=== PATIENT | female | born 1975 | race Caucasian/White ===

== ENCOUNTER 2017-04-27 18:10 | Emergency (ER) | payer BC ==
--- NOTE | 2017-04-27 18:47 | EDM.PDOC ---
ED HPI GENERAL MEDICAL PROBLEM - General Chief Complaint: Back Pain or Injury Stated Complaint: PT FELL AND HURT BACK Time Seen by Provider: 04/27/17 18:30 Source of Information: Reports: Patient History Limitations: Reports: No Limitations - History of Present Illness INITIAL COMMENTS - FREE TEXT/NARRATIVE: HISTORY AND PHYSICAL: History of present illness: [Patient comes to the emergency room complaining of upper back and tailbone discomfort as well as pain is to her right thumb. She slipped on some ice last night and fell landing flat on her back. She denies hitting her head and loss of consciousness. Her only complaints are to her upper back, tailbone and right thumb. She has not had any headache or head pain. No pain to her upper and lower extremities. No change to bowel or bladder habits. She sustained no other injury and has no other complaints or concerns at this time. She has not taken any medication for her symptoms.] Review of systems: As per history of present illness and below otherwise all systems reviewed and negative. Past medical history: As per history of present illness and as reviewed below otherwise noncontributory. Surgical history: As per history of present illness and as reviewed below otherwise noncontributory. Social history: No reported history of drug or alcohol abuse. Family history: As per history of present illness and as reviewed below otherwise noncontributory. Physical exam: HEENT: Atraumatic, normocephalic. PERRLA. EOMI. Oral mucous membranes are pink and moist. Lungs: Clear to auscultation, breath sounds equal bilaterally. Heart: S1S2, regular rate and rhythm. Abdomen: Soft, nondistended, nontender. Negative for costovertebral tenderness. Pelvis: Stable nontender. Genitourinary: Deferred. Rectal: Deferred. Back: Tender over thoracic musculature but no spinal tenderness. No tailbone tenderness with palpation over her SI joints or buttocks. Extremities: Right thumb over Metacarpals is mildly erythematous and mildly swollen. No ecchymosis. Decreased range of motion with movement of thumb. No hip pain with palpation. Neurovascular unremarkable. Neuro: Awake, alert, oriented. Cranial nerves II through XII unremarkable. Cerebellum unremarkable. Motor and sensory unremarkable throughout. Exam nonfocal. Diagnostics: [Right thumb x-ray, thoracic spine x-ray, sacrum] Therapeutics: [Tylenol 1000 mg by mouth] Impression: [Upper back pain Tailbone pain Right thumb pain] Plan: [Discussed with patient that her x-rays are within normal limits. Recommend alternating Tylenol with ibuprofen as needed for discomfort. Follow-up with PCP. She is in agreement with today's plan. All questions are answered and concerns are addressed.] Definitive disposition and diagnosis as appropriate pending reevaluation and review of above. lower back Pain Score (Numeric/FACES): 8 - Related Data Allergies Allergy/AdvReac Type Severity Reaction Status Date / Time sulfamethoxazole Allergy Swelling Verified 04/27/17 18:31 [From Bactrim] trimethoprim [From Bactrim] Allergy Swelling Verified 04/27/17 18:31 venlafaxine HCl Allergy Rash Verified 04/27/17 18:31 [From Effexor] Home Meds: Home Meds Escitalopram [Lexapro] 20 mg PO DAILY 04/27/17 [History] Lisinopril 40 mg PO DAILY 04/27/17 [History] ED ROS GENERAL - Review of Systems Review Of Systems: ROS reveals no pertinent complaints other than HPI. ED EXAM, UPPER BACK/NECK PAIN - Physical Exam Exam: See Below Course - Vital Signs Last Recorded V/S: Last Vital Signs Temp 97.4 F 04/27/17 21:16 Pulse 76 04/27/17 21:16 Resp 18 04/27/17 21:16 BP 159/77 H 04/27/17 21:16 Pulse Ox 100 04/27/17 21:16 - Orders/Labs/Meds Orders: Active Orders 24 hr Category Date Time Status Fingers Thumb Rt F5 [CR] Stat Exams 04/27/17 18:46 Taken Sacrum Coccyx Min 2V [CR] Stat Exams 04/27/17 18:46 Taken Thoracic Spine 2V [CR] Stat Exams 04/27/17 18:37 Taken Labs: Laboratory Tests 04/27/17 Range/Units 19:45 Urine HCG, Qual NEGATIVE (NEGATIVE) Meds: Medications Discontinued Medications Generic Name Dose Route Start Last Admin Trade Name Freq PRN Reason Stop Dose Admin Acetaminophen 1,000 mg 04/27/17 19:07 04/27/17 19:44 Tylenol Extra Strength PO 04/27/17 19:08 1,000 mg ONETIME ONE Administration Departure - Departure Time of Disposition: 19:50 Disposition: Home, Self-Care 01 Condition: Good Clinical Impression: Thumb pain, Upper back pain, Tail bone pain - Discharge Information Instructions: Back Pain, Adult, Tailbone Injury, [id number] Referrals: PCP,None [Primary Care Provider] - Forms: ED Department Discharge Additional Instructions: The following information is given to patients seen in the emergency department who are being discharged to home. This information is to outline your options for follow-up care. We provide all patients seen in our emergency department with a follow-up referral. The need for follow-up, as well as the timing and circumstances, are variable depending upon the specifics of your emergency department visit. If you don't have a primary care physician on staff, we will provide you with a referral. We always advise you to contact your personal physician following an emergency department visit to inform them of the circumstance of the visit and for follow-up with them and/or the need for any referrals to a consulting specialist. The emergency department will also refer you to a specialist when appropriate. This referral assures that you have the opportunity for follow-up care with a specialist. All of these measure are taken in an effort to provide you with optimal care, which includes your follow-up. Under all circumstances we always encourage you to contact your private physician who remains a resource for coordinating your care. When calling for follow-up care, please make the office aware that this follow-up is from your recent emergency room visit. If for any reason you are refused follow-up, please contact the [facility] emergency department at and asked to speak to the emergency department charge nurse. [facility] [address] [place] [id number] Follow-up the primary care provider in 2-3 days. Return to ER as needed as discussed. - My Orders Last 24 Hours: My Active Orders 04/27/17 18:37 Thoracic Spine 2V [CR] Stat 04/27/17 18:46 Fingers Thumb Rt F5 [CR] Stat Sacrum Coccyx Min 2V [CR] Stat - Assessment/Plan Last 24 Hours: My Active Orders 04/27/17 18:37 Thoracic Spine 2V [CR] Stat 04/27/17 18:46 Fingers Thumb Rt F5 [CR] Stat Sacrum Coccyx Min 2V [CR] Stat
[2017-04-27] MEDS ORDERED: Acetaminophen 500 MG Tab PO ONE (19:07)
[2017-04-27 21:17] VITALS: BP 159/77
--- NOTE | 2017-04-29 09:44 | CR ---
EXAM DATE: 04/27/17 PATIENT'S AGE: 41 Patient: EDGAR SIMS Facility: [place], [place] Site . Site : 1975 Study: XRay Spine Thoracic [id number]/4/2017 9:21:21 PM Ordering Physician: Doctor Valencia Final Report: INDICATION: Fell, upper and mid back pain. TECHNIQUE: Thoracic spine radiograph 3 view COMPARISON: None FINDINGS: Bones: Alignment is normal. No acute fractures or aggressive osseous lesions seen. Joints: Disc spaces are unremarkable. The facet joints are unremarkable in appearance. Soft tissues: Unremarkable. IMPRESSION: 1. No acute osseous injuries are identified. Dictated by Joaquín Zuniga MD @ 04/27/2017 9:42:27 PM Dictated by: Joaquín Zuniga MD @ 04/27/2017 21:42:31 (Electronic Signature) Report Signed by Proxy. MTDJorge Alberto
--- NOTE | 2017-04-29 09:45 | CR ---
EXAM DATE: 04/27/17 PATIENT'S AGE: 41 Patient: EDGAR SIMS Facility: [place], [place] Site . Site : 1975 Study: XRay Pelvis Sacrum/Coccyx [id number]/4/2017 9:22:32 PM Ordering Physician: Doctor Valencia Final Report: INDICATION: Status post fall, pain. TECHNIQUE: Sacrum radiograph 3 view COMPARISON: None FINDINGS: AP views of the sacrum limited due to overlying bowel gas. On the lateral view, no cortical irregularity identified to indicate sacral or coccygeal fracture. Pubic rami intact. IMPRESSION: 1. Limited study. No definite sacral fracture. If high clinical suspicion, consider MRI. Dictated by Joaquín Zuniga MD @ 04/27/2017 9:46:25 PM Dictated by: Joaquín uZniga MD @ 04/27/2017 21:46:33 (Electronic Signature) Report Signed by Proxy. MTDD
--- NOTE | 2017-04-29 09:46 | CR ---
EXAM DATE: 04/27/17 PATIENT'S AGE: 41 Patient: EDGAR SIMS Facility: [place], [place] Site . Site : 1975 Study: XRay Extremity Right Thumb [id number]/4/2017 9:23:27 PM Ordering Physician: Doctor Valencia Final Report: INDICATION: Status post fall with finger pain. TECHNIQUE: Finger radiographs 3 views COMPARISON: None FINDINGS: Bones: Alignment is normal. No acute fractures or aggressive bone lesions are identified. Joint spaces: The metacarpophalangeal and interphalangeal joints are normal in appearance. Soft tissues: Unremarkable. No radiopaque foreign bodies are noted. IMPRESSION: 1. Right thumb, no acute fracture or malalignment. Dictated by Joaquín Zuniga MD @ 04/27/2017 9:48:43 PM Dictated by: Joaquín Zuniga MD @ 04/27/2017 21:48:48 (Electronic Signature) Report Signed by Proxy. [facility] DIVISIONJorge Alberto
== END 2017-04-27 22:12 | disposition home or self-care (01) ==
LOC: MW.ED 18:10
DX: M54.6 Pain in thoracic spine (principal); M79.644 Pain in right finger(s); Z88.2 Allergy status to sulfonamides; Z88.1 Allergy status to other antibiotic agents; Z79.899 Other long term (current) drug therapy
CPT/HCPCS: 72070; 72220; 73140; 81025; 99284; A9270; 99283

== ENCOUNTER 2019-02-24 08:32 | Emergency (ER) | payer BC ==
[2019-02-24] MEDS ORDERED: Ketorolac 30 MG/ML SDV IVPUSH ONE (08:43)
[2019-02-24] MEDS ORDERED: Ondansetron 4 MG/2 ML SDV IVPUSH ONE (08:43)
[2019-02-24] MEDS ORDERED: Sodium Chloride 0.9% 1,000 ML IV ONE (08:43)
--- NOTE | 2019-02-24 08:56 | EDM.PDOC ---
ED HPI GENERAL MEDICAL PROBLEM - General Chief Complaint: Flank Pain Stated Complaint: POSSIBLE KIDNEY STONE Time Seen by Provider: 02/24/19 08:42 - History of Present Illness INITIAL COMMENTS - FREE TEXT/NARRATIVE: HISTORY AND PHYSICAL: History of present illness: Patient a 43-year-old white female history of nephrolithiasis who presents with concern of right flank pain she is awaiting a urology follow-up for a 9 mm stone in her right renal pelvis without obstruction diagnosed on 01/19/19 fever chills nausea vomiting or other complaints. Review of systems: As per history of present illness and below otherwise all systems reviewed and negative. Past medical history: As per history of present illness and as reviewed below otherwise noncontributory. Surgical history: As per history of present illness and as reviewed below otherwise noncontributory. Social history: No reported history of drug or alcohol abuse. Family history: As per history of present illness and as reviewed below otherwise noncontributory. Physical exam: HEENT: Atraumatic, normocephalic, pupils reactive, negative for conjunctival pallor or scleral icterus, mucous membranes moist, throat clear, neck supple, nontender, trachea midline. Lungs: Clear to auscultation, breath sounds equal bilaterally, chest nontender. Heart: S1S2, regular, negative for clicks, rubs, or JVD. Abdomen: Soft, nondistended, nontender. Negative for masses or hepatosplenomegaly. Right-sided costovertebral tenderness. Pelvis: Stable nontender. Genitourinary: Deferred. Rectal: Deferred. Extremities: Atraumatic, negative for cords or calf pain. Neurovascular unremarkable. Neuro: Awake, alert, oriented. Cranial nerves II through XII unremarkable. Cerebellum unremarkable. Motor and sensory unremarkable throughout. Exam nonfocal. Diagnostics: CBC CMP UA CT abdomen and pelvis hCG Therapeutics: Saline 1 L bolus Toradol 30 mg IV Impression: #1 history of nephrolithiasis #2 right flank pain Definitive disposition and diagnosis as appropriate pending reevaluation and review of above. right flank Pain Score (Numeric/FACES): 10 - Related Data Allergies Allergy/AdvReac Type Severity Reaction Status Date / Time sulfamethoxazole Allergy Swelling Verified 02/24/19 08:47 [From Bactrim] trimethoprim [From Bactrim] Allergy Swelling Verified 02/24/19 08:47 venlafaxine HCl Allergy Rash Verified 02/24/19 08:47 [From Effexor] Home Meds: Home Meds Escitalopram [Lexapro] 20 mg PO DAILY 04/27/17 [History] Lisinopril 40 mg PO DAILY 04/27/17 [History] Past Medical History HEENT History: Reports: None Cardiovascular History: Reports: None Respiratory History: Reports: None Gastrointestinal History: Reports: None Genitourinary History: Reports: None GENERAL [place] History: Reports: None Musculoskeletal History: Reports: None Neurological History: Reports: None Psychiatric History: Reports: Depression Endocrine/Metabolic History: Reports: None Hematologic History: Reports: None Immunologic History: Reports: None Oncologic (Cancer) History: Reports: None Dermatologic History: Reports: None - Infectious Disease History Infectious Disease History: Reports: None - Past Surgical History Head Surgeries/Procedures: Reports: None Female Surgical History: Reports: Kidney stone extraction, Oophorectomy Social & Family History - Family History Family Medical History: Noncontributory - Tobacco Use Smoking Status *Q: Never Smoker Second Hand Smoke Exposure: No - Caffeine Use Caffeine Use: Reports: Soda - Recreational Drug Use Recreational Drug Use: No ED ROS GENERAL - Review of Systems Review Of Systems: ROS reveals no pertinent complaints other than HPI. ED EXAM, GENERAL - Physical Exam Exam: See Below (dictation) Course - Vital Signs Text/Narrative:: Case was discussed with Dr. Blanton urology was scheduled to follow-up with patient we discussed the urinalysis results the CAT scan findings labs and clinical statement patient will be discharged home per urology who will notify patient to expedite definitive treatment plan urology requests antibiotics pain medication. Patient understands and agrees Last Recorded V/S: Last Vital Signs Temp 36.1 C 02/24/19 08:43 Pulse 74 02/24/19 10:08 Resp 18 02/24/19 10:08 BP 136/79 02/24/19 10:08 Pulse Ox 100 02/24/19 10:08 - Orders/Labs/Meds Orders: Active Orders 24 hr Category Date Time Status CULTURE URINE [RM] Stat Lab 02/24/19 09:59 Received Labs: Laboratory Tests 02/24/19 02/24/19 02/24/19 Range/Units 08:50 08:50 08:50 WBC 7.76 (4.0-11.0) K/uL RBC 4.53 (4.30-5.90) M/uL Hgb 13.9 (12.0-16.0) g/dL Hct 43.0 (36.0-46.0) % MCV 94.9 (80.0-98.0) fL MCH 30.7 (27.0-32.0) pg MCHC 32.3 (31.0-37.0) g/dL RDW Std Deviation 45.9 (28.0-62.0) fl RDW Coeff of [place] 13 (11.0-15.0) % Plt Count 246 (150-400) K/uL MPV 10.00 (7.40-12.00) fL Neut % (Auto) 61.3 (48.0-80.0) % Lymph % (Auto) 25.0 (16.0-40.0) % [place] % (Auto) 9.3 (0.0-15.0) % Eos % (Auto) 4.0 (0.0-7.0) % Baso % (Auto) 0.4 (0.0-1.5) % Neut # (Auto) 4.8 (1.4-5.7) K/uL Lymph # (Auto) 1.9 (0.6-2.4) K/uL [place] # (Auto) 0.7 (0.0-0.8) K/uL Eos # (Auto) 0.3 (0.0-0.7) K/uL Baso # (Auto) 0.0 (0.0-0.1) K/uL Nucleated RBC % 0.0 /100WBC Nucleated RBCs # 0 K/uL Sodium 138 (136-145) mmol/L Potassium 4.2 (3.5-5.1) mmol/L Chloride 104 (98-107) mmol/L Carbon Dioxide 23.6 (21.0-32.0) mmol/L BUN 16 (7.0-18.0) mg/dL Creatinine 0.9 (0.6-1.0) mg/dL Est Cr Clr Drug Dosing 77.01 mL/min Estimated GFR (MDRD) > 60.0 ml/min Glucose 100 (74-106) mg/dL Calcium 9.3 (8.5-10.1) mg/dL Total Bilirubin 0.2 (0.2-1.0) mg/dL AST 30 (15-37) IU/L ALT 47 (14-63) IU/L Alkaline Phosphatase 79 (46-116) U/L Total Protein 7.3 (6.4-8.2) g/dL Albumin 3.8 (3.4-5.0) g/dL Globulin 3.5 (2.6-4.0) g/dL Albumin/Globulin Ratio 1.1 (0.9-1.6) HCG, Qual NEGATIVE (NEG) Urine Color Urine Appearance Urine pH (5.0-8.0) Ur Specific [place] (1.001-1.035) Urine Protein (NEGATIVE) mg/dL Urine Glucose (UA) (NEGATIVE) mg/dL Urine Ketones (NEGATIVE) mg/dL Urine Occult Blood (NEGATIVE) Urine Nitrite (NEGATIVE) Urine Bilirubin (NEGATIVE) Urine Urobilinogen (<2.0) EU/dL Ur Leukocyte Esterase (NEGATIVE) Urine RBC (0-2/HPF) Urine WBC (0-5/HPF) Ur Epithelial Cells (NONE-FEW) Urine Bacteria (NEGATIVE) 02/24/19 Range/Units 09:59 WBC (4.0-11.0) K/uL RBC (4.30-5.90) M/uL Hgb (12.0-16.0) g/dL Hct (36.0-46.0) % MCV (80.0-98.0) fL MCH (27.0-32.0) pg MCHC (31.0-37.0) g/dL RDW Std Deviation (28.0-62.0) fl RDW Coeff of [place] (11.0-15.0) % Plt Count (150-400) K/uL MPV (7.40-12.00) fL Neut % (Auto) (48.0-80.0) % Lymph % (Auto) (16.0-40.0) % [place] % (Auto) (0.0-15.0) % Eos % (Auto) (0.0-7.0) % Baso % (Auto) (0.0-1.5) % Neut # (Auto) (1.4-5.7) K/uL Lymph # (Auto) (0.6-2.4) K/uL [place] # (Auto) (0.0-0.8) K/uL Eos # (Auto) (0.0-0.7) K/uL Baso # (Auto) (0.0-0.1) K/uL Nucleated RBC % /100WBC Nucleated RBCs # K/uL Sodium (136-145) mmol/L Potassium (3.5-5.1) mmol/L Chloride (98-107) mmol/L Carbon Dioxide (21.0-32.0) mmol/L BUN (7.0-18.0) mg/dL Creatinine (0.6-1.0) mg/dL Est Cr Clr Drug Dosing mL/min Estimated GFR (MDRD) ml/min Glucose (74-106) mg/dL Calcium (8.5-10.1) mg/dL Total Bilirubin (0.2-1.0) mg/dL AST (15-37) IU/L ALT (14-63) IU/L Alkaline Phosphatase (46-116) U/L Total Protein (6.4-8.2) g/dL Albumin (3.4-5.0) g/dL Globulin (2.6-4.0) g/dL Albumin/Globulin Ratio (0.9-1.6) HCG, Qual (NEG) Urine Color YELLOW Urine Appearance SLT CLOUDY Urine pH 6.0 (5.0-8.0) Ur Specific [place] 1.025 (1.001-1.035) Urine Protein 30 H (NEGATIVE) mg/dL Urine Glucose (UA) NEGATIVE (NEGATIVE) mg/dL Urine Ketones NEGATIVE (NEGATIVE) mg/dL Urine Occult Blood LARGE H (NEGATIVE) Urine Nitrite NEGATIVE (NEGATIVE) Urine Bilirubin NEGATIVE (NEGATIVE) Urine Urobilinogen 0.2 (<2.0) EU/dL Ur Leukocyte Esterase SMALL H (NEGATIVE) Urine RBC 5-10 (0-2/HPF) Urine WBC 10-15 (0-5/HPF) Ur Epithelial Cells FEW (NONE-FEW) Urine Bacteria FEW (NEGATIVE) Meds: Medications Discontinued Medications Generic Name Dose Route Start Last Admin Trade Name Freq PRN Reason Stop Dose Admin Sodium Chloride 1,000 mls @ 999 mls/hr 02/24/19 08:43 02/24/19 09:03 Normal Saline IV 02/24/19 09:43 999 mls/hr STAT ONE Administration Ketorolac Tromethamine 30 mg 09/03/19 08:43 02/24/19 09:03 Toradol IVPUSH 02/24/19 08:44 30 mg ONETIME ONE Administration Ondansetron HCl 4 mg 02/24/19 08:43 02/24/19 09:03 Zofran IVPUSH 02/24/19 08:44 4 mg ONETIME ONE Administration Departure - Departure Time of Disposition: 10:52 Disposition: Home, Self-Care 01 Condition: Good Clinical Impression: Ureteric colic, Ureterolithiasis - Discharge Information Referrals: Maggie Joseph MD [Primary Care Provider] - Forms: ED Department Discharge Additional Instructions: The following information is given to patients seen in the emergency department who are being discharged to home. This information is to outline your options for follow-up care. We provide all patients seen in our emergency department with a follow-up referral. The need for follow-up, as well as the timing and circumstances, are variable depending upon the specifics of your emergency department visit. If you don't have a primary care physician on staff, we will provide you with a referral. We always advise you to contact your personal physician following an emergency department visit to inform them of the circumstance of the visit and for follow-up with them and/or the need for any referrals to a consulting specialist. The emergency department will also refer you to a specialist when appropriate. This referral assures that you have the opportunity for followup care with a specialist. All of these measure are taken in an effort to provide you with optimal care, which includes your followup. Under all circumstances we always encourage you to contact your private physician who remains a resource for coordinating your care. When calling for followup care, please make the office aware that this follow-up is from your recent emergency room visit. If for any reason you are refused follow-up, please contact the [facility] emergency department at and asked to speak to the emergency department charge nurse. Follow-up urology as discussed Cipro Zofran Flomax hydrocodone as prescribed return as needed as discussed - My Orders Last 24 Hours: My Active Orders 02/24/19 09:59 CULTURE URINE [RM] Stat - Assessment/Plan Last 24 Hours: My Active Orders 02/24/19 09:59 CULTURE URINE [RM] Stat
[2019-02-24 09:28] LABS: BLOOD UREA NITROGEN,BUN 16 mg/dL (7.0-18.0); CARBON DIOXIDE,CO2 23.6 mmol/L (21.0-32.0); CHLORIDE,CL 104 mmol/L (98-107); GLUCOSE RANDOM 100 mg/dL (74-106); POTASSIUM,K 4.2 mmol/L (3.5-5.1); SODIUM,NA 138 mmol/L (136-145)
--- NOTE | 2019-02-24 09:58 | CT ---
INDICATION: Right flank pain; history of kidney stones. COMPARISON: CT abdomen and pelvis without intravenous or oral contrast January 19, 2019. TECHNIQUE: CT abdomen and pelvis without intravenous or oral contrast; coronal and sagittal reformats. FINDINGS: No abnormal intra pulmonary nodular densities to the lung bases. No evidence of pleural effusion. Normal size cardiac silhouette without any evidence of pericardial effusion. Diffuse fatty infiltration of the liver. No focal hepatic or splenic pathology. No pancreatic pathology. Cholelithiasis. A 11.6 mm stone identified at the right ureteropelvic junction slice 62 series 201 causing mild right-sided hydronephrosis. No evidence of dilatation of the right ureter. No evidence of stones in the right ureter. 7 mm nonobstructing calculus upper pole calyx left kidney slice 48 series 201. No perinephric pathology on either side. No retroperitoneal lymphadenopathy. No evidence of abdominal or pelvic ascites. Normal appendix. CT study of the pelvis is unremarkable. Status post hysterectomy. Impression: 1. A 7 mm nonobstructing calculus upper pole calyx left kidney. 2. A 11.6 mm calculus right ureteropelvic junction causing mild right-sided hydronephrosis. 3. Normal appendix. 4. Status post hysterectomy. 5. Cholelithiasis. Please note that all CT scans at this facility use dose modulation, iterative reconstruction, and/or weight-based dosing when appropriate to reduce radiation dose to as low as reasonably achievable. Dictated by Irlanda Veloz MD @ Feb 24 2019 9:48AM Signed by Dr. Irlanda Veloz @ Feb 24 2019 9:56AM
[2019-02-24 12:38] VITALS: BP 168/95
== END 2019-02-24 11:13 | disposition home or self-care (01) ==
LOC: MW.ED 08:32
DX: N13.2 Hydronephrosis with renal and ureteral calculous obstruction (principal); Z88.8 Allergy status to other drugs, medicaments and biological substances; Z88.1 Allergy status to other antibiotic agents; Z79.899 Other long term (current) drug therapy
CPT/HCPCS: 36415; 74176; 80053; 81001; 84703; 85025; 87086; 96361; 96374; 96375; 99284; J1885; J2405; J7040

== ENCOUNTER 2019-03-04 22:51 | Emergency (ER) | payer BC ==
[2019-03-04] MEDS ORDERED: Morphine 2 MG/ML Syringe IVPUSH ONE (23:16)
[2019-03-04] MEDS ORDERED: Ondansetron 4 MG/2 ML SDV IVPUSH ONE (23:16)
[2019-03-04] MEDS ORDERED: Sodium Chloride 0.9% 10 ML Syringe FLUSH PRN (23:16)
[2019-03-04] MEDS ORDERED: Sodium Chloride 0.9% 1,000 ML IV ONE (23:16)
[2019-03-04] MEDS ORDERED: Sodium Chloride 0.9% 2.5 ML Syringe FLUSH PRN (23:16)
[2019-03-04] MEDS ORDERED: Ketorolac 30 MG/ML SDV IVPUSH ONE (23:16)
--- NOTE | 2019-03-04 23:21 | EDM.PDOC ---
ED HPI GENERAL MEDICAL PROBLEM - General Chief Complaint: Flank Pain Stated Complaint: KIDNEY STONE AND BACK PAIN Time Seen by Provider: 03/04/19 23:05 - History of Present Illness INITIAL COMMENTS - FREE TEXT/NARRATIVE: HISTORY AND PHYSICAL: History of present illness: The patient is a 43-year-old female with a known history of hypertension who has had multiple episodes of kidney stones and 3 prior lithotripsies presents with a known diagnosis of a large right intrarenal stone which is approximately 11 mm inside at the UPJ and has already seen Dr. Sears. She says that she had a follow-up x-ray yesterday and is scheduled for lithotripsy on March 12, next week. She says that she has hydrocodone 5/325 that she uses occasionally for pain management but she has not used very much of the medication. She says she has taken one tablet every 2-3 days and she did take 1 prior to coming here. She said she has never taken more than 1 tablet of time and usually it takes care of the pain but this evening it did not work and she was concerned because the pain was making her blood pressure go up. She is not having fevers chills nausea or vomiting but with the new increase in pain she had some nausea without vomiting at home and felt hot and sweaty. She has no shortness of breath or chest pain and the pain she is describing as on the right flank radiating to the right mid abdomen just her typical pain. She has no left-sided abdominal pain has been having normal bowel movements. She has no frequency urgency or dysuria and she admits that she does not drink much water. She has a known history of gallstones and in fact has appointment tomorrow with Dr. Garcia at [facility] to discuss cholecystectomy after the kidney stone is taking care of. The patient had a CT scan of the abdomen and pelvis performed here in the emergency department on February 24 which I reviewed and a KUB x-ray performed yesterday which I have also reviewed. Review of systems: As per history of present illness and below otherwise all systems reviewed and negative. Past medical history: As per history of present illness and as reviewed below otherwise noncontributory. Surgical history: As per history of present illness and as reviewed below otherwise noncontributory. Social history: No reported history of drug or alcohol abuse. Family history: As per history of present illness and as reviewed below otherwise noncontributory. Physical exam: General: Well-developed well-nourished mildly overweight female who is nontoxic and vital signs are noted by me HEENT: Atraumatic, normocephalic, negative for conjunctival pallor or scleral icterus, mucous membranes moist, throat clear, neck supple, nontender, trachea midline. Lungs: Clear to auscultation, breath sounds equal bilaterally, chest nontender. Heart: S1S2, regular rate and rhythm no overt murmurs Abdomen: Soft, nondistended, nontender. Bowel sounds are hypoactive and on palpation I cannot reproduce the pain and she only has minimal tenderness in the right side. Negative for masses or hepatosplenomegaly. Negative for costovertebral tenderness. Pelvis: Stable nontender. Genitourinary: Deferred. Rectal: Deferred. Extremities: Atraumatic, negative for cords or calf pain. Neurovascular unremarkable. Neuro: Awake, alert, oriented. Cranial nerves II through XII unremarkable. Cerebellum unremarkable. Motor and sensory unremarkable throughout. Exam nonfocal. Diagnostics: UA with reflex UCG CBC CMP Urine culture was ordered after the UA was reflexed Therapeutics: IV fluids Toradol Zofran and morphine, Dilaudid Discussed with the patient that the Sarita she has at home can be increased in dosing and she may take one and a half to 2 tablets every 6-8 hours as she chooses if the pain is not managed with the one tablet per dose that she has been taking. We also discussed that she needs to increase her fluid intake as she is not hydrated enough in light of her kidney stone and upcoming surgery Impression: Right flank pain acute on chronic with history of right UPJ stone Definitive disposition and diagnosis as appropriate pending reevaluation and review of above. right flank Pain Score (Numeric/FACES): 10 - Related Data Allergies Allergy/AdvReac Type Severity Reaction Status Date / Time sulfamethoxazole Allergy Swelling Verified 03/04/19 22:59 [From Bactrim] trimethoprim [From Bactrim] Allergy Swelling Verified 03/04/19 22:59 venlafaxine HCl Allergy Rash Verified 03/04/19 22:59 [From Effexor] Home Meds: Home Meds Lisinopril 40 mg PO DAILY 04/27/17 [History] Hydrocodone/Acetaminophen [Hydrocodon-Acetaminophen 5-325] 1 tab PO ASDIRECTED 03/04/19 [History] Past Medical History HEENT History: Reports: None Cardiovascular History: Reports: Hypertension Respiratory History: Reports: None Gastrointestinal History: Reports: None Genitourinary History: Reports: None PROFESSOR OF OCEANOGRAPHY History: Reports: None Musculoskeletal History: Reports: None Neurological History: Reports: None Psychiatric History: Reports: Depression Endocrine/Metabolic History: Reports: None Insulin Pump Model and Manager Air: N/A Hematologic History: Reports: None Immunologic History: Reports: None Oncologic (Cancer) History: Reports: None Dermatologic History: Reports: None - Infectious Disease History Infectious Disease History: Reports: None - Past Surgical History Head Surgeries/Procedures: Reports: None Female Surgical History: Reports: Kidney stone extraction, Lithotripsy/ESWL, Oophorectomy Social & Family History - Family History Family Medical History: Noncontributory - Tobacco Use Smoking Status *Q: Never Smoker - Caffeine Use Caffeine Use: Reports: Soda - Recreational Drug Use Recreational Drug Use: No ED ROS GENERAL - Review of Systems Review Of Systems: ROS reveals no pertinent complaints other than HPI. ED EXAM, GENERAL - Physical Exam Exam: See Below (See dictation) Course - Vital Signs Last Recorded V/S: Last Vital Signs Temp 36.1 C 03/04/19 23:00 Pulse 74 03/04/19 23:38 Resp 16 03/04/19 23:38 BP 149/87 H 03/04/19 23:38 Pulse Ox 100 03/04/19 23:38 - Orders/Labs/Meds Orders: Active Orders 24 hr Category Date Time Status CULTURE URINE [RM] Stat Lab 03/04/19 23:05 Received Sodium Chloride 0.9% [Saline Flush] Med 03/04/19 23:16 Active 10 ml FLUSH ASDIRECTED PRN Sodium Chloride 0.9% [Saline Flush] Med 03/04/19 23:16 Active 2.5 ml FLUSH ASDIRECTED PRN Saline Lock Insert [OM.PC] Stat Oth 03/04/19 23:15 Ordered Medication Orders Sodium Chloride (Saline Flush) 10 ml FLUSH ASDIRECTED PRN PRN Reason: Keep Vein Open Sodium Chloride (Saline Flush) 2.5 ml FLUSH ASDIRECTED PRN PRN Reason: Keep Vein Open Labs: Laboratory Tests 03/04/19 03/04/19 03/04/19 Range/Units 23:05 23:05 23:26 WBC 7.71 (4.0-11.0) K/uL RBC 4.39 (4.30-5.90) M/uL Hgb 13.6 (12.0-16.0) g/dL Hct 42.2 (36.0-46.0) % MCV 96.1 (80.0-98.0) fL MCH 31.0 (27.0-32.0) pg MCHC 32.2 (31.0-37.0) g/dL RDW Std Deviation 46.0 (28.0-62.0) fl RDW Coeff of Kalyan 13 (11.0-15.0) % Plt Count 237 (150-400) K/uL MPV 9.90 (7.40-12.00) fL Neut % (Auto) 61.7 (48.0-80.0) % Lymph % (Auto) 25.7 (16.0-40.0) % [place] % (Auto) 8.8 (0.0-15.0) % Eos % (Auto) 3.4 (0.0-7.0) % Baso % (Auto) 0.4 (0.0-1.5) % Neut # (Auto) 4.8 (1.4-5.7) K/uL Lymph # (Auto) 2.0 (0.6-2.4) K/uL [place] # (Auto) 0.7 (0.0-0.8) K/uL Eos # (Auto) 0.3 (0.0-0.7) K/uL Baso # (Auto) 0.0 (0.0-0.1) K/uL Nucleated RBC % 0.0 /100WBC Nucleated RBCs # 0 K/uL Sodium (136-145) mmol/L Potassium (3.5-5.1) mmol/L Chloride (98-107) mmol/L Carbon Dioxide (21.0-32.0) mmol/L BUN (7.0-18.0) mg/dL Creatinine (0.6-1.0) mg/dL Est Cr Clr Drug Dosing mL/min Estimated GFR (MDRD) ml/min Glucose (74-106) mg/dL Calcium (8.5-10.1) mg/dL Total Bilirubin (0.2-1.0) mg/dL AST (15-37) IU/L ALT (14-63) IU/L Alkaline Phosphatase (46-116) U/L Total Protein (6.4-8.2) g/dL Albumin (3.4-5.0) g/dL Globulin (2.6-4.0) g/dL Albumin/Globulin Ratio (0.9-1.6) Urine Color YELLOW Urine Appearance SLT CLOUDY Urine pH 5.5 (5.0-8.0) Ur Specific [place] >= 1.030 (1.001-1.035) Urine Protein 30 H (NEGATIVE) mg/dL Urine Glucose (UA) NEGATIVE (NEGATIVE) mg/dL Urine Ketones NEGATIVE (NEGATIVE) mg/dL Urine Occult Blood LARGE H (NEGATIVE) Urine Nitrite NEGATIVE (NEGATIVE) Urine Bilirubin NEGATIVE (NEGATIVE) Urine Urobilinogen 0.2 (<2.0) EU/dL Ur Leukocyte Esterase SMALL H (NEGATIVE) Urine RBC TOO NUMEROUS TO CT H (0-2/HPF) Urine WBC 3-5 (0-5/HPF) Ur Epithelial Cells FEW (NONE-FEW) Urine Bacteria FEW (NEGATIVE) Urine Mucus LIGHT (NONE-MOD) Urine HCG, Qual NEGATIVE (NEGATIVE) 03/04/19 Range/Units 23:26 WBC (4.0-11.0) K/uL RBC (4.30-5.90) M/uL Hgb (12.0-16.0) g/dL Hct (36.0-46.0) % MCV (80.0-98.0) fL MCH (27.0-32.0) pg MCHC (31.0-37.0) g/dL RDW Std Deviation (28.0-62.0) fl RDW Coeff of Kalyan (11.0-15.0) % Plt Count (150-400) K/uL MPV (7.40-12.00) fL Neut % (Auto) (48.0-80.0) % Lymph % (Auto) (16.0-40.0) % [place] % (Auto) (0.0-15.0) % Eos % (Auto) (0.0-7.0) % Baso % (Auto) (0.0-1.5) % Neut # (Auto) (1.4-5.7) K/uL Lymph # (Auto) (0.6-2.4) K/uL [place] # (Auto) (0.0-0.8) K/uL Eos # (Auto) (0.0-0.7) K/uL Baso # (Auto) (0.0-0.1) K/uL Nucleated RBC % /100WBC Nucleated RBCs # K/uL Sodium 143 (136-145) mmol/L Potassium 3.9 (3.5-5.1) mmol/L Chloride 106 (98-107) mmol/L Carbon Dioxide 27.3 (21.0-32.0) mmol/L BUN 16 (7.0-18.0) mg/dL Creatinine 1.0 (0.6-1.0) mg/dL Est Cr Clr Drug Dosing 69.31 mL/min Estimated GFR (MDRD) > 60.0 ml/min Glucose 104 (74-106) mg/dL Calcium 8.6 (8.5-10.1) mg/dL Total Bilirubin 0.3 (0.2-1.0) mg/dL AST 28 (15-37) IU/L ALT 57 (14-63) IU/L Alkaline Phosphatase 76 (46-116) U/L Total Protein 6.9 (6.4-8.2) g/dL Albumin 3.6 (3.4-5.0) g/dL Globulin 3.3 (2.6-4.0) g/dL Albumin/Globulin Ratio 1.1 (0.9-1.6) Urine Color Urine Appearance Urine pH (5.0-8.0) Ur Specific [place] (1.001-1.035) Urine Protein (NEGATIVE) mg/dL Urine Glucose (UA) (NEGATIVE) mg/dL Urine Ketones (NEGATIVE) mg/dL Urine Occult Blood (NEGATIVE) Urine Nitrite (NEGATIVE) Urine Bilirubin (NEGATIVE) Urine Urobilinogen (<2.0) EU/dL Ur Leukocyte Esterase (NEGATIVE) Urine RBC (0-2/HPF) Urine WBC (0-5/HPF) Ur Epithelial Cells (NONE-FEW) Urine Bacteria (NEGATIVE) Urine Mucus (NONE-MOD) Urine HCG, Qual (NEGATIVE) Meds: Medications Generic Name Dose Route Start Last Admin Trade Name Freq PRN Reason Stop Dose Admin Sodium Chloride 10 ml 03/04/19 23:16 Saline Flush FLUSH ASDIRECTED PRN Keep Vein Open Sodium Chloride 2.5 ml 03/04/19 23:16 Saline Flush FLUSH ASDIRECTED PRN Keep Vein Open Discontinued Medications Generic Name Dose Route Start Last Admin Trade Name Trinh PRN Reason Stop Dose Admin Hydromorphone HCl 1 mg 03/05/19 00:09 03/05/19 00:21 Dilaudid IVPUSH 03/05/19 00:10 1 mg ONETIME ONE Administration Sodium Chloride 1,000 mls @ 999 mls/hr 03/04/19 23:16 03/04/19 23:22 Normal Saline IV 03/05/19 00:16 999 mls/hr STAT ONE Administration Ketorolac Tromethamine 30 mg 03/04/19 23:16 03/04/19 23:23 Toradol IVPUSH 03/04/19 23:17 30 mg ONETIME ONE Administration Morphine Sulfate 4 mg 03/04/19 23:16 03/04/19 23:23 Morphine IVPUSH 03/04/19 23:17 4 mg ONETIME ONE Administration Ondansetron HCl 4 mg 03/04/19 23:16 03/04/19 23:23 Zofran IVPUSH 03/04/19 23:17 4 mg ONETIME ONE Administration Departure - Departure Time of Disposition: 00:38 Disposition: Home, Self-Care 01 Condition: Good Clinical Impression: Right flank pain, Kidney stone - Discharge Information Instructions: Kidney Stones, [id number], Flank Pain, Adult, [id number] Referrals: PCP,None [Primary Care Provider] - Forms: ED Department Discharge Additional Instructions: The following information is given to patients seen in the emergency department who are being discharged to home. This information is to outline your options for follow-up care. We provide all patients seen in our emergency department with a follow-up referral. The need for follow-up, as well as the timing and circumstances, are variable depending upon the specifics of your emergency department visit. If you don't have a primary care physician on staff, we will provide you with a referral. We always advise you to contact your personal physician following an emergency department visit to inform them of the circumstance of the visit and for follow-up with them and/or the need for any referrals to a consulting specialist. The emergency department will also refer you to a specialist when appropriate. This referral assures that you have the opportunity for followup care with a specialist. All of these measure are taken in an effort to provide you with optimal care, which includes your followup. Under all circumstances we always encourage you to contact your private physician who remains a resource for coordinating your care. When calling for followup care, please make the office aware that this follow-up is from your recent emergency room visit. If for any reason you are refused follow-up, please contact the emergency department at and ask to speak to the emergency department charge nurse. [facility] [address] [place] [address] [id number] Continue to use the Sarita that you have taking 1, 1 1/2 or 2 tablets every 6-8 hours for pain management. Please connect with Dr. Sears if you are having continued pain issues as he can advise you more thoroughly in light of your upcoming lithotripsy. Please push more hydration and avoid caffeinated products. Return to ER as needed and as discussed - My Orders Last 24 Hours: My Active Orders 03/04/19 23:15 Saline Lock Insert [OM.PC] Stat 03/04/19 23:16 Sodium Chloride 0.9% [Saline Flush] 10 ml FLUSH ASDIRECTED PRN Sodium Chloride 0.9% [Saline Flush] 2.5 ml FLUSH ASDIRECTED PRN - Assessment/Plan Last 24 Hours: My Active Orders 03/04/19 23:15 Saline Lock Insert [OM.PC] Stat 03/04/19 23:16 Sodium Chloride 0.9% [Saline Flush] 10 ml FLUSH ASDIRECTED PRN Sodium Chloride 0.9% [Saline Flush] 2.5 ml FLUSH ASDIRECTED PRN
[2019-03-05 00:02] LABS: BLOOD UREA NITROGEN,BUN 16 mg/dL (7.0-18.0); CARBON DIOXIDE,CO2 27.3 mmol/L (21.0-32.0); CHLORIDE,CL 106 mmol/L (98-107); GLUCOSE RANDOM 104 mg/dL (74-106); POTASSIUM,K 3.9 mmol/L (3.5-5.1); SODIUM,NA 143 mmol/L (136-145)
[2019-03-05] MEDS ORDERED: HYDROmorphone 1 MG/ML Syringe IVPUSH ONE (00:09)
[2019-03-05 00:38] VITALS: BP 123/79; PULSE 77
== END 2019-03-05 00:47 | disposition home or self-care (01) ==
LOC: MW.ED 22:51
DX: N20.0 Calculus of kidney (principal); I10 Essential (primary) hypertension; Z88.2 Allergy status to sulfonamides; Z88.1 Allergy status to other antibiotic agents; Z88.8 Allergy status to other drugs, medicaments and biological substances; Z79.899 Other long term (current) drug therapy
CPT/HCPCS: 36415; 80053; 81001; 81025; 85025; 87086; 96361; 96374; 96375; 99284; J1170; J1885; J2270; J2405; J7040; 99283

== ENCOUNTER 2019-03-12 08:03 | Day surgery (SDC) | payer BC ==
[~2019-03-12 08:03] MED LIST: Iopamidol 408 MG/ML 50 ML SDV ONE; Lactated Ringers 1,000 ML IV SCH; Sodium Chloride 0.9% 10 ML SDV IV PRN; Sodium Chloride 0.9% 10 ML Syringe FLUSH PRN; Sodium Chloride 0.9% 2.5 ML Syringe FLUSH PRN
--- NOTE | 2019-03-12 08:57 | PCM.PREANE ---
Preanesthetic Assessment - Anesthesia/Transfusion/Family Hx Anesthesia History: Prior Anesthesia Without Reaction Family History of Anesthesia Reaction: No Transfusion History: No Prior Transfusion(s) - Review of Systems General: No Symptoms Pulmonary: No Symptoms Cardiovascular: No Symptoms Gastrointestinal: No Symptoms Neurological: No Symptoms Other: Reports: None - Physical Assessment Height: 5 ft 6 in Weight: 96.615 kg ASA Class: 2 Mental Status: Alert & Oriented x3 Airway Class: Mallampati = 2 Dentition: Reports: Normal Dentition ROM/Head Extension: Full Lungs: Clear to Auscultation, Normal Respiratory Effort Cardiovascular: Regular Rate, Regular Rhythm - Lab Values: Laboratory Last Values Urine HCG, Qual NEGATIVE (NEGATIVE) 03/12/19 08:20 - Allergies Allergies/Adverse Reactions: Allergies Allergy/AdvReac Type Severity Reaction Status Date / Time sulfamethoxazole Allergy Swelling Verified 03/09/19 10:09 [From Bactrim] trimethoprim [From Bactrim] Allergy Swelling Verified 03/09/19 10:09 venlafaxine HCl Allergy Rash Verified 03/09/19 10:09 [From Effexor] - Blood Blood Available: No - Anesthesia Plan Pre-Op Medication Ordered: None - Acknowledgements Anesthesia Type Planned: General Anesthesia Pt an Appropriate Candidate for the Planned Anesthesia: Yes Alternatives and Risks of Anesthesia Discussed w Pt/Guardian: Yes Pt/Guardian Understands and Agrees with Anesthesia Plan: Yes Additional Comments: PMH: htn, last lisinipril dose 18 hr ago PLAN: ga/lma PreAnesthesia Questionnaire HEENT History: Reports: Other (See Below) Other HEENT History: wears glasses Cardiovascular History: Reports: Hypertension Respiratory History: Reports: Sleep Apnea Other Respiratory History: does not use a CPAP Gastrointestinal History: Reports: GERD Genitourinary History: Reports: Renal Calculus APIARIST History: Reports: None Musculoskeletal History: Reports: Back Pain, Chronic, Neck Pain, Chronic Neurological History: Reports: None Psychiatric History: Reports: Depression Endocrine/Metabolic History: Reports: Obesity/BMI 30+ Hematologic History: Reports: None Immunologic History: Reports: None Oncologic (Cancer) History: Reports: None Dermatologic History: Reports: None - Infectious Disease History Infectious Disease History: Reports: None - Past Surgical History HEENT Surgical History: Reports: Adenoidectomy Female Surgical History: Reports: Lithotripsy/ESWL, Oophorectomy Other Female Surgeries/Procedures: ESWL x3 - SUBSTANCE USE Smoking Status *Q: Never Smoker Recreational Drug Use History: No - HOME MEDS Home Medications: Home Meds Lisinopril 40 mg PO DAILY 04/27/17 [History] Hydrocodone/Acetaminophen [Hydrocodon-Acetaminophen 5-325] 1 tab PO ASDIRECTED 03/04/19 [History] Omeprazole 20 mg PO DAILY 03/11/19 [History] Ondansetron [Zofran ODT] 4 mg PO ASDIRECTED PRN 03/11/19 [History] - CURRENT (IN HOUSE) MEDS Current Meds: Current Medications Lactated Ringer's (Ringers, Lactated) 1,000 mls @ 100 mls/hr IV ASDIRECTED ELZA Last Admin: 03/12/19 08:42 Dose: 100 mls/hr Sodium Chloride (Saline Flush) 10 ml FLUSH ASDIRECTED PRN PRN Reason: Keep Vein Open Sodium Chloride (Saline Flush) 2.5 ml FLUSH ASDIRECTED PRN PRN Reason: Keep Vein Open Sodium Chloride (Normal Saline) 10 ml IV ASDIRECTED PRN PRN Reason: IV Use Discontinued Medications Iopamidol (Isovue-200 (41%)) Confirm Administered Dose 50 ml .ROUTE .STK-MED ONE Stop: 03/12/19 07:33
[2019-03-12] MEDS ORDERED: Midazolam 1 MG/ML 2 ML SDV ONE (09:41)
[2019-03-12] MEDS ORDERED: fentaNYL 100 MCG/2 ML SDV ONE ×2 (09:41→10:33)
[2019-03-12] MEDS ORDERED: Propofol 200 MG/20 ML SDV ONE (09:42)
[2019-03-12] MEDS ORDERED: Rocuronium 100 MG/10 ML Syringe ONE (09:42)
[2019-03-12] MEDS ORDERED: Dexamethasone 4 MG/ML 5 ML MDV ONE (10:27)
[2019-03-12] MEDS ORDERED: Ketorolac 30 MG/ML SDV ONE (10:54)
[2019-03-12] MEDS ORDERED: Ondansetron 4 MG/2 ML SDV ONE (10:54)
[2019-03-12] MEDS ORDERED: Sugammadex Sodium 200 MG/2 ML VIAL ONE (11:10)
[2019-03-12] MEDS ORDERED: Ondansetron 4 MG Tab.DIS PO PRN (11:21)
[2019-03-12] MEDS ORDERED: Non-Formulary Medication 1 Each (Hydrocodone/Acetaminophen 1 TAB) PO SCH (11:30)
--- NOTE | 2019-03-12 12:06 | PCM.POSTAN ---
POST ANESTHESIA ASSESSMENT - MENTAL STATUS Mental Status: Alert, Oriented - VITAL SIGNS Vital Signs: Last Vital Signs Temp 97.0 F 03/12/19 11:28 Pulse 86 03/12/19 11:53 Resp 10 L 03/12/19 11:53 BP 173/104 H 03/12/19 11:53 Pulse Ox 98 03/12/19 11:53 - RESPIRATORY Respiratory Status: Respiratory Rate WNL, Airway Patent, O2 Saturation Stable - CARDIOVASCULAR CV Status: Pulse Rate WNL, Blood Pressure Stable - GASTROINTESTINAL GI Status: No Symptoms - POST OP HYDRATION Hydration Status: Adequate & Stable
--- NOTE | 2019-03-12 12:06 | PCM48HPAN ---
Post Anesthesia Note - EVALUATION WITHIN 48HRS OF ANESTHETIC Vital Signs in Normal Range: Yes Patient Participated in Evaluation: Yes Respiratory Function Stable: Yes Airway Patent: Yes Cardiovascular Function Stable: Yes Hydration Status Stable: Yes Pain Control Satisfactory: Yes Nausea and Vomiting Control Satisfactory: Yes Mental Status Recovered: Yes Vital Signs: Last Vital Signs Temp 97.0 F 03/12/19 11:28 Pulse 86 03/12/19 11:53 Resp 10 L 03/12/19 11:53 BP 173/104 H 03/12/19 11:53 Pulse Ox 98 03/12/19 11:53
[2019-03-12 12:34] VITALS: BP 168/94; PULSE 75
[2019-03-12] MEDS ORDERED: Acetaminophen/HYDROcodone 325-5 MG Tab PO SCH (12:55)
--- NOTE | 2019-03-12 14:25 | OR ---
SURGEON: Rudy Sears M.D. DATE OF PROCEDURE: 03/12/2019 PREOPERATIVE DIAGNOSIS: Right renal pelvis stone, 1.2 cm. POSTOPERATIVE DIAGNOSIS: Right renal pelvis stone, 1.2 cm. OPERATION: Extracorporeal shock wave lithotripsy plus cystoscopy, double-J stent placement. DESCRIPTION OF PROCEDURE: The patient was given general anesthesia. She was on the lithotripsy table. The position of the patient was adjusted, so the stone could be treated and eventually received a total of 2400 shocks, monitoring the treatment progress during the procedure. The stone shadow changed significantly. The stone was in the renal pelvis so the degree to which it was fragmented was unclear because the shadow did not necessarily disappear. With that done, the patient was then placed in dorsal lithotomy position. Cystourethroscopy was done that was normal. A guidewire was advanced into the right ureter, all the way up into the renal pelvis, over which a 6-Georgian 26 centimeter double-J stent was placed. Position was confirmed with fluoroscopy. The bladder was emptied, and the patient was moved to recovery room in good condition. PLAN: She will come to the office one week from today for cystoscopy, double-J stent removal. GIL / MICHELLE /[id number]
[2019-03-13] MEDS ORDERED: Non-Formulary Medication 1 Each (Lisinopril [Lisinopril] 40 MG) PO SCH (09:00)
[2019-03-13] MEDS ORDERED: Non-Formulary Medication 1 Each (Omeprazole [Omeprazole] 20 MG) PO SCH (09:00)
== END 2019-03-12 13:45 | disposition home or self-care (01) ==
LOC: MW.SDS 08:03
PROVIDERS: ATTEND Urology
DX: N20.0 Calculus of kidney (principal); I10 Essential (primary) hypertension; G47.30 Sleep apnea, unspecified; Z88.2 Allergy status to sulfonamides; Z88.1 Allergy status to other antibiotic agents; Z88.8 Allergy status to other drugs, medicaments and biological substances; Z79.899 Other long term (current) drug therapy
CPT/HCPCS: 50590; 52332; 81025; A9270; J1100; J1885; J2250; J2405; J2704; J3010; J3490; J7120; Q9966

== ENCOUNTER 2019-03-20 11:19 | Emergency (ER) | payer BC ==
[2019-03-20] MEDS ORDERED: Sodium Chloride 0.9% 1,000 ML IV ONE (11:26)
--- NOTE | 2019-03-20 11:27 | EDM.PDOC ---
ED HPI GENERAL MEDICAL PROBLEM - General Chief Complaint: Cardiovascular Problem Stated Complaint: LIGHT HEADED AND DIZZY Time Seen by Provider: 03/20/19 11:27 Source of Information: Reports: Patient - History of Present Illness INITIAL COMMENTS - FREE TEXT/NARRATIVE: HISTORY AND PHYSICAL: History of present illness: [Patient with history of recent lithotripsy and ureteral stent removal last week presents with generalized weakness today no fever nausea vomiting chills sweats no chest pain shortness breath headache dizziness palpitation no bowel symptoms she states she has had some blood in her urine] Review of systems: As per history of present illness and below otherwise all systems reviewed and negative. Past medical history: As per history of present illness and as reviewed below otherwise noncontributory. Surgical history: As per history of present illness and as reviewed below otherwise noncontributory. Social history: No reported history of drug or alcohol abuse. Family history: As per history of present illness and as reviewed below otherwise noncontributory. Physical exam: HEENT: Atraumatic, normocephalic, pupils reactive, negative for conjunctival pallor or scleral icterus, mucous membranes moist, throat clear, neck supple, nontender, trachea midline. Lungs: Clear to auscultation, breath sounds equal bilaterally, chest nontender. Heart: S1S2, regular, negative for clicks, rubs, or JVD. Abdomen: Soft, nondistended, nontender. Negative for masses or hepatosplenomegaly. Negative for costovertebral tenderness. Pelvis: Stable nontender. Genitourinary: Deferred. Rectal: Deferred. Extremities: Atraumatic, negative for cords or calf pain. Neurovascular unremarkable. Neuro: Awake, alert, oriented. Cranial nerves II through XII unremarkable. Cerebellum unremarkable. Motor and sensory unremarkable throughout. Exam nonfocal. Diagnostics: [cBC CMP UA hCG troponin EKG Chest 1 view ] Therapeutics: [Saline ] Impression: UTI Generalized weakness [Dizziness] Definitive disposition and diagnosis as appropriate pending reevaluation and review of above. - Related Data Allergies Allergy/AdvReac Type Severity Reaction Status Date / Time sulfamethoxazole Allergy Swelling Verified 03/20/19 11:27 [From Bactrim] trimethoprim [From Bactrim] Allergy Swelling Verified 03/20/19 11:27 venlafaxine HCl Allergy Rash Verified 03/20/19 11:27 [From Effexor] Home Meds: Home Meds Lisinopril 40 mg PO DAILY 04/27/17 [History] Hydrocodone/Acetaminophen [Hydrocodon-Acetaminophen 5-325] 1 tab PO ASDIRECTED 03/04/19 [History] Omeprazole 20 mg PO DAILY 03/11/19 [History] Ondansetron [Zofran ODT] 4 mg PO ASDIRECTED PRN 03/11/19 [History] Past Medical History HEENT History: Reports: None Other HEENT History: wears glasses Cardiovascular History: Reports: Hypertension Respiratory History: Reports: None Other Respiratory History: does not use a CPAP Gastrointestinal History: Reports: None Genitourinary History: Reports: None 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 Musculoskeletal History: Reports: None Neurological History: Reports: None Psychiatric History: Reports: Depression Endocrine/Metabolic History: Reports: None 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 Hand: N/A Hematologic History: Reports: None Immunologic History: Reports: None Oncologic (Cancer) History: Reports: None Dermatologic History: Reports: None - Infectious Disease History Infectious Disease History: Reports: None - Past Surgical History Female Surgical History: Reports: Kidney stone extraction, Lithotripsy/ESWL, Oophorectomy Social & Family History - Family History Family Medical History: Noncontributory - Caffeine Use Caffeine Use: Reports: Soda ED ROS GENERAL - Review of Systems Review Of Systems: See Below ED EXAM, GENERAL - Physical Exam Exam: See Below Course - Vital Signs Last Recorded V/S: Last Vital Signs Temp 97.5 F 03/20/19 11:28 Pulse 93 03/20/19 11:41 Resp 16 03/20/19 11:28 BP 102/65 03/20/19 11:41 Pulse Ox 100 03/20/19 11:41 - Orders/Labs/Meds Orders: Active Orders 24 hr Category Date Time Status EKG Documentation Completion [RC] STAT Care 03/20/19 11:26 Active CULTURE URINE [RM] Stat Lab 03/20/19 11:45 Received Labs: Laboratory Tests 03/20/19 03/20/19 03/20/19 Range/Units 11:30 11:30 11:45 WBC 9.71 (4.0-11.0) K/uL RBC 4.61 (4.30-5.90) M/uL Hgb 14.2 (12.0-16.0) g/dL Hct 44.1 (36.0-46.0) % MCV 95.7 (80.0-98.0) fL MCH 30.8 (27.0-32.0) pg MCHC 32.2 (31.0-37.0) g/dL RDW Std Deviation 47.0 (28.0-62.0) fl RDW Coeff of Kalyan 14 (11.0-15.0) % Plt Count 271 (150-400) K/uL MPV 10.20 (7.40-12.00) fL Add Manual Diff YES Neutrophils % (Manual) 64 (48.0-80.0) % Band Neutrophils % 2 % Lymphocytes % (Manual) 18 (16.0-40.0) % Monocytes % (Manual) 9 (0.0-15.0) % Eosinophils % (Manual) 5 (0.0-7.0) % Metamyelocytes % 1 % Myelocytes % 1 % Nucleated RBC % 0.0 /100WBC Absolute Seg Neuts 6.2 H (1.4-5.7) Band Neutrophils # 0.2 Lymphocytes # (Manual) 1.7 (0.6-2.4) Monocytes # (Manual) 0.9 H (0.0-0.8) Eosinophils # (Manual) 0.5 (0.0-0.7) Absolute Metamyelocyte 0.1 Absolute Myelocytes 0.1 Nucleated RBCs # 0 K/uL Sodium 136 (136-145) mmol/L Potassium 4.3 (3.5-5.1) mmol/L Chloride 101 (98-107) mmol/L Carbon Dioxide 22.4 (21.0-32.0) mmol/L BUN 27 H (7.0-18.0) mg/dL Creatinine 1.1 H (0.6-1.0) mg/dL Est Cr Clr Drug Dosing 63.01 mL/min Estimated GFR (MDRD) 54.7 ml/min Glucose 144 H (74-106) mg/dL Calcium 9.1 (8.5-10.1) mg/dL Total Bilirubin 0.3 (0.2-1.0) mg/dL AST 32 (15-37) IU/L ALT 55 (14-63) IU/L Alkaline Phosphatase 78 (46-116) U/L Troponin I < 0.050 (0.000-0.056) ng/mL Total Protein 8.0 (6.4-8.2) g/dL Albumin 3.9 (3.4-5.0) g/dL Globulin 4.1 H (2.6-4.0) g/dL Albumin/Globulin Ratio 1.0 (0.9-1.6) Urine Color YELLOW Urine Appearance SLT CLOUDY Urine pH 5.5 (5.0-8.0) Ur Specific Cowen 1.025 (1.001-1.035) Urine Protein 30 H (NEGATIVE) mg/dL Urine Glucose (UA) NEGATIVE (NEGATIVE) mg/dL Urine Ketones NEGATIVE (NEGATIVE) mg/dL Urine Occult Blood LARGE H (NEGATIVE) Urine Nitrite NEGATIVE (NEGATIVE) Urine Bilirubin NEGATIVE (NEGATIVE) Urine Urobilinogen 0.2 (<2.0) EU/dL Ur Leukocyte Esterase MODERATE H (NEGATIVE) Urine RBC 60-70 (0-2/HPF) Urine WBC 30-40 (0-5/HPF) Ur Epithelial Cells OCCASIONAL (NONE-FEW) Urine Bacteria FEW (NEGATIVE) Urine Mucus LIGHT (NONE-MOD) Urine HCG, Qual (NEGATIVE) 03/20/19 Range/Units 11:45 WBC (4.0-11.0) K/uL RBC (4.30-5.90) M/uL Hgb (12.0-16.0) g/dL Hct (36.0-46.0) % MCV (80.0-98.0) fL MCH (27.0-32.0) pg MCHC (31.0-37.0) g/dL RDW Std Deviation (28.0-62.0) fl RDW Coeff of Kalyan (11.0-15.0) % Plt Count (150-400) K/uL MPV (7.40-12.00) fL Add Manual Diff Neutrophils % (Manual) (48.0-80.0) % Band Neutrophils % % Lymphocytes % (Manual) (16.0-40.0) % Monocytes % (Manual) (0.0-15.0) % Eosinophils % (Manual) (0.0-7.0) % Metamyelocytes % % Myelocytes % % Nucleated RBC % /100WBC Absolute Seg Neuts (1.4-5.7) Band Neutrophils # Lymphocytes # (Manual) (0.6-2.4) Monocytes # (Manual) (0.0-0.8) Eosinophils # (Manual) (0.0-0.7) Absolute Metamyelocyte Absolute Myelocytes Nucleated RBCs # K/uL Sodium (136-145) mmol/L Potassium (3.5-5.1) mmol/L Chloride (98-107) mmol/L Carbon Dioxide (21.0-32.0) mmol/L BUN (7.0-18.0) mg/dL Creatinine (0.6-1.0) mg/dL Est Cr Clr Drug Dosing mL/min Estimated GFR (MDRD) ml/min Glucose (74-106) mg/dL Calcium (8.5-10.1) mg/dL Total Bilirubin (0.2-1.0) mg/dL AST (15-37) IU/L ALT (14-63) IU/L Alkaline Phosphatase (46-116) U/L Troponin I (0.000-0.056) ng/mL Total Protein (6.4-8.2) g/dL Albumin (3.4-5.0) g/dL Globulin (2.6-4.0) g/dL Albumin/Globulin Ratio (0.9-1.6) Urine Color Urine Appearance Urine pH (5.0-8.0) Ur Specific Cowen (1.001-1.035) Urine Protein (NEGATIVE) mg/dL Urine Glucose (UA) (NEGATIVE) mg/dL Urine Ketones (NEGATIVE) mg/dL Urine Occult Blood (NEGATIVE) Urine Nitrite (NEGATIVE) Urine Bilirubin (NEGATIVE) Urine Urobilinogen (<2.0) EU/dL Ur Leukocyte Esterase (NEGATIVE) Urine RBC (0-2/HPF) Urine WBC (0-5/HPF) Ur Epithelial Cells (NONE-FEW) Urine Bacteria (NEGATIVE) Urine Mucus (NONE-MOD) Urine HCG, Qual NEGATIVE (NEGATIVE) Meds: Medications Discontinued Medications Generic Name Dose Route Start Last Admin Trade Name Freq PRN Reason Stop Dose Admin Sodium Chloride 1,000 mls @ 999 mls/hr 03/20/19 11:26 03/20/19 11:54 Normal Saline IV 03/20/19 12:26 999 mls/hr STAT ONE Administration Departure - Departure Time of Disposition: 12:32 Disposition: Home, Self-Care 01 Condition: Good Clinical Impression: UTI (urinary tract infection), Generalized weakness Referrals: Maggie Joseph MD [Primary Care Provider] - Forms: ED Department Discharge Additional Instructions: The following information is given to patients seen in the emergency department who are being discharged to home. This information is to outline your options for follow-up care. We provide all patients seen in our emergency department with a follow-up referral. The need for follow-up, as well as the timing and circumstances, are variable depending upon the specifics of your emergency department visit. If you don't have a primary care physician on staff, we will provide you with a referral. We always advise you to contact your personal physician following an emergency department visit to inform them of the circumstance of the visit and for follow-up with them and/or the need for any referrals to a consulting specialist. The emergency department will also refer you to a specialist when appropriate. This referral assures that you have the opportunity for follow-up care with a specialist. All of these measure are taken in an effort to provide you with optimal care, which includes your follow-up. Under all circumstances we always encourage you to contact your private physician who remains a resource for coordinating your care. When calling for follow-up care, please make the office aware that this follow-up is from your recent emergency room visit. If for any reason you are refused follow-up, please contact the [facility] emergency department at and asked to speak to the emergency department charge nurse. - My Orders Last 24 Hours: My Active Orders 03/20/19 11:26 EKG Documentation Completion [RC] STAT 03/20/19 11:45 CULTURE URINE [RM] Stat - Assessment/Plan Last 24 Hours: My Active Orders 03/20/19 11:26 EKG Documentation Completion [RC] STAT 03/20/19 11:45 CULTURE URINE [RM] Stat
[2019-03-20 12:13] LABS: BLOOD UREA NITROGEN,BUN 27 mg/dL (7.0-18.0); CARBON DIOXIDE,CO2 22.4 mmol/L (21.0-32.0); CHLORIDE,CL 101 mmol/L (98-107); GLUCOSE RANDOM 144 mg/dL (74-106); POTASSIUM,K 4.3 mmol/L (3.5-5.1); SODIUM,NA 136 mmol/L (136-145)
--- NOTE | 2019-03-20 12:14 | CR ---
Chest: Portable view of the chest was obtained. Comparison: No prior chest imaging is available. Heart size and mediastinum are normal. Lungs are clear with no acute parenchymal change. Bony structures are grossly intact. Impression: Nothing acute is seen on portable chest x-ray. Diagnostic code #1 MTDD
[2019-03-20] MEDS ORDERED: Levofloxacin/Dextrose 5%-Water 750 MG in Premix Bag 1 BAG IV ONE (12:33)
[2019-03-20] MEDS ORDERED: cefTRIAXone 1 GM in Premix Bag 1 BAG IV ONE (12:58)
[2019-03-20] MEDS ORDERED: diphenhydrAMINE 50 MG/ML SDV IVPUSH ONE (12:59)
[2019-03-20] MEDS ORDERED: Ketorolac 30 MG/ML SDV IVPUSH ONE (14:15)
[2019-03-20 14:36] VITALS: BP 162/98; PULSE 96
== END 2019-03-20 14:35 | disposition home or self-care (01) ==
LOC: MW.ED 11:19
DX: N39.0 Urinary tract infection, site not specified (principal); R53.1 Weakness; I10 Essential (primary) hypertension; Z88.2 Allergy status to sulfonamides; Z88.8 Allergy status to other drugs, medicaments and biological substances; Z79.899 Other long term (current) drug therapy
CPT/HCPCS: 36415; 71045; 80053; 81001; 81025; 83605; 84484; 85025; 87040; 87086; 93005; 96361; 96365; 96375; 99285; J0696; J1200; J1885; J1956; J7040

== ENCOUNTER 2023-03-07 08:56 | Emergency (ER) | payer BC, OTHER ==
[2023-03-07] MEDS ORDERED: Sodium Chloride 0.9% 10 ML Syringe FLUSH PRN (09:05)
[2023-03-07] MEDS ORDERED: Sodium Chloride 0.9% 2.5 ML Syringe FLUSH PRN (09:05)
[2023-03-07] MEDS ORDERED: Aspirin 81 MG Tab.Chew PO ONE (09:05)
[2023-03-07] MEDS ORDERED: Ondansetron 4 MG/2 ML SDV IVPUSH ONE (09:05)
[2023-03-07 09:41] LABS: BASOPHILS ABSOLUTE AUTO 0.1 K/uL (0.0-0.1); BASOPHILS PERCENT AUTO 0.9 % (0.0-1.5); EOSINOPHILS ABSOLUTE AUTO 0.6 K/uL (0.0-0.7); EOSINOPHILS PERCENT AUTO 9.1 % (0.0-7.0); HEMATOCRIT 38.3 % (36.0-46.0); HEMOGLOBIN 12.4 g/dL (12.0-16.0); LYMPHOCYTES ABSOLUTE AUTO 1.1 K/uL (0.6-2.4); LYMPHOCYTES PERCENT AUTO 15.4 % (16.0-40.0); MEAN CORPUSCULAR HEMOGLOBIN 30.5 pg (27.0-32.0); MEAN CORPUSCULAR HGB CONC 32.4 g/dL (31.0-37.0); MEAN CORPUSCULAR VOLUME 94.3 fL (80.0-98.0); MONOCYTES ABSOLUTE AUTO 0.6 K/uL (0.0-0.8); MONOCYTES PERCENT AUTO 7.8 % (0.0-15.0); NEUTROPHILS ABSOLUTE AUTO 4.7 K/uL (1.4-5.7); NEUTROPHILS PERCENT AUTO 66.8 % (48.0-80.0); NRBC ABSOLUTE 0 K/uL; PLATELET COUNT,PLT 241 K/uL (150-400); RED BLOOD CELL COUNT 4.06 M/uL (4.30-5.90); WHITE BLOOD CELL COUNT,WBC 7.01 K/uL (4.0-11.0)
[2023-03-07 10:06] LABS: ALANINE AMINOTRANSFERASE,ALT 25 IU/L (14-63); ALBUMIN 3.9 g/dL (3.4-5.0); ALKALINE PHOSPHATASE 78 U/L (46-116); ASPARTATE AMNIOTRANSFERASE,AST 15 IU/L (15-37); BILIRUBIN TOTAL 0.3 mg/dL (0.2-1.0); BLOOD UREA NITROGEN,BUN 23 mg/dL (7.0-18.0); CALCIUM 8.6 mg/dL (8.5-10.1); CARBON DIOXIDE,CO2 23.3 mmol/L (21.0-32.0); CHLORIDE,CL 104 mmol/L (98-107); CREATININE 1.8 mg/dL (0.6-1.0); EST CRCL DRUG DOSING (CG) 38.38 mL/min; GLUCOSE RANDOM 106 mg/dL (74-106); LIPASE 39 U/L (16-77); POTASSIUM,K 4.1 mmol/L (3.5-5.1); PROTEIN TOTAL,TP 7.8 g/dL (6.4-8.2); SODIUM,NA 139 mmol/L (136-145)
[2023-03-07 10:23] LABS: ESTIMATED GFR 35 mL/min (>60)
[2023-03-07] MEDS ORDERED: Sodium Chloride 0.9% 1,000 ML IV ONE (10:39)
[2023-03-07] MEDS ORDERED: Iopamidol 755 MG/ML 500 ML Multipack Bottle IVPUSH STA (12:02)
[2023-03-07] MEDS ORDERED: Sodium Chloride 0.9% 1,000 ML IV SCH (12:15)
[2023-03-07 14:24] VITALS: BP 117/71; PULSE 81
== END 2023-03-07 14:24 | disposition home or self-care (01) ==
LOC: MW.ED 08:56
DX: R07.89 Other chest pain (principal); R55 Syncope and collapse; I12.9 Hypertensive chronic kidney disease with stage 1 through stage 4 chronic kidney disease, or unspecified chronic kidney disease; N18.9 Chronic kidney disease, unspecified; Z90.49 Acquired absence of other specified parts of digestive tract; Z88.1 Allergy status to other antibiotic agents; Z88.2 Allergy status to sulfonamides; Z88.8 Allergy status to other drugs, medicaments and biological substances; Z79.899 Other long term (current) drug therapy
CPT/HCPCS: 36415; 71275; 80053; 83690; 83735; 83880; 84484; 85025; 93005; 96361; 96374; 99285; A9270; J2405; J3490; J7030; Q9967; 93010; 99284

== ENCOUNTER 2023-05-26 16:47 | Emergency (ER) | payer OTHER ==
[2023-05-26 17:12] LABS: BASOPHILS ABSOLUTE AUTO 0.07 K/uL (0.00-0.20); BASOPHILS PERCENT AUTO 0.5 % (0.0-1.0); EOSINOPHILS PERCENT AUTO 7.7 % (0.0-6.0); HEMATOCRIT 42.6 % (37.0-47.0); HEMOGLOBIN 14.5 g/dL (12.0-16.0); IMMATURE GRAN ABSOLUTE AUTO 0.07 K/uL (0.00-0.05); IMMATURE GRAN PERCENT AUTO 0.5 % (0.0-0.4); LYMPHOCYTES PERCENT AUTO 23.1 % (24.0-44.0); MEAN CORPUSCULAR HEMOGLOBIN 31.3 pg (28.0-32.0); MEAN PLATELET VOLUME 9.2 fL (9.4-12.3); MONOCYTES PERCENT AUTO 7.7 % (0.0-8.0); NEUTROPHILS ABSOLUTE AUTO 7.83 K/uL (1.80-7.70); NEUTROPHILS PERCENT AUTO 60.5 % (41.0-71.0); PLATELET COUNT,PLT 279 K/uL (150-400); RED BLOOD CELL COUNT 4.63 M/uL (4.10-5.30); WHITE BLOOD CELL COUNT,WBC 12.97 K/uL (3.9-11.3)
[2023-05-26 17:23] LABS: INR 0.94 (0.86-1.11); PTT,PARTIAL THROMBOPLSTIN TIME 21.8 SEC (23.9-30.7)
[2023-05-26 17:35] LABS: A/G RATIO 0.9 (0.9-1.6); ALBUMIN 3.8 g/dL (3.4-5.0); BILIRUBIN TOTAL 0.2 mg/dL (0.2-1.0); CALCIUM 8.6 mg/dL (8.5-10.1); CARBON DIOXIDE,CO2 25.7 mmol/L (21.0-32.0); CREATININE 1.4 mg/dL (0.6-1.0); EST CRCL DRUG DOSING (CG) 49.35 mL/min; MAGNESIUM 2.1 mg/dL (1.8-2.4); POTASSIUM,K 3.1 mmol/L (3.5-5.1); PROTEIN TOTAL,TP 7.8 g/dL (6.4-8.2)
[2023-05-26] MEDS ORDERED: Potassium Chloride 20 MEQ Tab.ER PO ONE (17:56)
[2023-05-26 18:04] LABS: CORONAVIRUS COVID-19 NAA NEGATIVE (NEGATIVE); INFLUENZA A NAA NEGATIVE (NEGATIVE); INFLUENZA B NAA NEGATIVE (NEGATIVE)
[2023-05-26 18:45] VITALS: BP 121/77; PULSE 85
== END 2023-05-26 18:43 | disposition home or self-care (01) ==
LOC: MW.ED 16:47
DX: R07.2 Precordial pain (principal); I10 Essential (primary) hypertension; Z79.899 Other long term (current) drug therapy; Z88.8 Allergy status to other drugs, medicaments and biological substances; Z88.2 Allergy status to sulfonamides; Z88.1 Allergy status to other antibiotic agents; Z20.822 Contact with and (suspected) exposure to COVID-19
CPT/HCPCS: 0240U; 36415; 71045; 80053; 83690; 83735; 84484; 85025; 85610; 85730; 93005; 99285; A9270; 93010; 99283

== ENCOUNTER 2025-05-29 19:46 | Emergency (ER) | payer OTHER ==
[2025-05-29 21:50] VITALS: BP 131/78; PULSE 78
== END 2025-05-29 22:30 | disposition home or self-care (01) ==
LOC: MW.ED 19:46
DX: S43.422A Sprain of left rotator cuff capsule, initial encounter (principal); I10 Essential (primary) hypertension; Z79.899 Other long term (current) drug therapy; Z88.8 Allergy status to other drugs, medicaments and biological substances; Z88.2 Allergy status to sulfonamides; Z88.1 Allergy status to other antibiotic agents; X50.9XXA Other and unspecified overexertion or strenuous movements or postures, initial encounter; Y93.H1 Activity, digging, shoveling and raking
CPT/HCPCS: 73030; 99283; A9270

== ENCOUNTER 2025-06-01 19:36 | Emergency (ER) | payer OTHER ==
[2025-06-01 20:28] LABS: APPEARANCE,URINE CLEAR; GLUCOSE,URINE NEGATIVE (NEGATIVE); OCCULT BLOOD,URINE NEGATIVE (NEGATIVE)
[2025-06-01 20:45] LABS: EPITHELIAL CELLS,URINE RARE (NONE-FEW)
[2025-06-01] MEDS: Ketorolac 60 MG/2 ML SDV IM ONE (20:50)
[2025-06-01] MEDS: Orphenadrine 60 MG/2 ML Inj IM ONE ×2 (20:50→21:09)
[2025-06-01 21:22] VITALS: BP 127/86; PULSE 88
== END 2025-06-01 21:21 | disposition home or self-care (01) ==
LOC: MW.ED 19:36
DX: M62.838 Other muscle spasm (principal); I10 Essential (primary) hypertension; Z79.899 Other long term (current) drug therapy; Z88.8 Allergy status to other drugs, medicaments and biological substances; Z88.2 Allergy status to sulfonamides; X50.9XXA Other and unspecified overexertion or strenuous movements or postures, initial encounter
CPT/HCPCS: 81001; 96372; 99283; J1885; J2360